=== PATIENT | male | born 1940 | race Caucasian/White ===

== ENCOUNTER 2023-04-12 11:43 | Emergency (ER) | payer OTHER, BC ==
[2023-04-12] MEDS ORDERED: DIPHTH,PERTUSS(ACELL),TET 0.5 ML DISP.SYRIN IM ONE ×2 (12:03→13:23)
[2023-04-12] MEDS ORDERED: ACETAMINOPHEN 500 MG TABLET (FP) PO ONE (12:03)
[2023-04-12 12:29] VITALS: BP 159/54; PULSE 78; RESP 18; TEMP 97.2; BMI 23.2
[2023-04-12] MEDS ORDERED: ACETAMINOPHEN 500 MG TABLET (FP) ONE (13:23)
== END 2023-04-12 15:28 | disposition home or self-care (01) ==
LOC: FER 11:43
PROC: 0HQ1XZZ Repair Face Skin, External Approach (ICD-10-PCS; principal; 2023-04-12)
PROC: 3E0234Z Introduction of Serum, Toxoid and Vaccine into Muscle, Percutaneous Approach (ICD-10-PCS; 2023-04-12)
DX: S01.81XA Laceration without foreign body of other part of head, initial encounter (principal); W01.0XXA Fall on same level from slipping, tripping and stumbling without subsequent striking against object, initial encounter; Y93.01 Activity, walking, marching and hiking; Y92.480 Sidewalk as the place of occurrence of the external cause
CPT/HCPCS: 12011-25; 70450-TC; 72125-TC; 73030-TC-RT-FY; 73060-TC-RT-FY; 90471; 90715; 99284-25

== ENCOUNTER 2023-04-17 11:45 | Emergency (ER) | payer OTHER, BC ==
[2023-04-17 11:58] VITALS: BP 148/76; PULSE 73; RESP 18; TEMP 99.7; BMI 23.2
== END 2023-04-17 12:25 | disposition home or self-care (01) ==
LOC: FER 11:45
DX: Z48.02 Encounter for removal of sutures (principal)
CPT/HCPCS: 99282-25